=== PATIENT | female | born 1975 | race Asian ===

== ENCOUNTER 2019-05-31 15:30 | Emergency (ER) | payer MEDICAID ==
[~2019-05-31] VITALS: Ht 157.5 cm; Wt 50.8 kg
[2019-05-31 15:41] VITALS: BP_SYST 151
--- NOTE | 2019-05-31 16:00 | NUR ---
Patient to ER bed 03 to gown for evaluation. Side rails up.
--- NOTE | 2019-05-31 16:45 | NUR ---
Patient presented to ER c/o headache and phothophobia for 6 months. Patient A&Ox4, afebrile, ambulatory to ER, Patient states headache pain 10/10 with blurred vision. Patient sytates headache started 6 months ago but pain increased today prompting ER visit. Patient states she has been hospitalized for headache in the past.
--- NOTE | 2019-05-31 17:00 | NUR ---
Mauricio REYES [employer] SPECIALIST at bedside examining patient.
[2019-05-31 17:21] LABS: BASOPHILS # (AUTO) 0.1 K/uL (0.0-0.2); BASOPHILS % (AUTO) 0.9 % (0.0-2.0); EOSINOPHILS # (AUTO) 0.3 K/uL (0.0-0.4); EOSINOPHILS % (AUTO) 3.5 % (0.0-4.0); HEMATOCRIT 41.9 % (36-48); HEMOGLOBIN 13.8 g/dL (12.0-16.0); LYMPHOCYTES # (AUTO) 1.5 K/uL (1.0-5.5); LYMPHOCYTES % (AUTO) 19.6 % (20.5-51.5); MEAN CORPUSCULAR HEMOGLOBIN 30 pg (27-31); MEAN CORPUSCULAR HGB CONC 33 % (32-36); MEAN CORPUSCULAR VOLUME 91 fL (79.0-98.0); MONOCYTES # (AUTO) 0.4 K/uL (0.0-1.0); MONOCYTES % (AUTO) 5.7 % (1.7-9.3); NEUTROPHILS # (AUTO) 5.2 K/uL (1.8-7.7); NEUTROPHILS % (AUTO) 70.3 % (40.0-70.0); PLATELET COUNT (AUTO) 250 K/uL (130-430); RED BLOOD CELL COUNT(AUTO) 4.61 MIL/uL (4.2-6.2); RED CELL DISTRIBUTION WIDTH 13.4 % (9.0-15.0); WHITE BLOOD COUNT (AUTO) 7.4 K/uL (4.8-10.8)
[2019-05-31 17:33] LABS: CALCIUM 9.3 mg/dL (8.4-11.0); CREATININE 0.67 mg/dL (0.55-1.30); POTASSIUM 3.7 mmol/L (3.5-5.1)
[2019-05-31 17:39] LABS: TOTAL BILIRUBIN 0.3 mg/dL (0.0-1.0)
[2019-05-31] MEDS ORDERED: chlorproMAZINE HCL 50 MG/ 2 ML AMP IM ONE (17:45)
[2019-05-31] MEDS ORDERED: DIPHENHYDRAMINE INJ 50 MG/ML VIAL IVP ONE ×2 (17:45)
[2019-05-31] MEDS ORDERED: NACL 0.9% 1,000 ML IV ONE (17:45)
[2019-05-31 17:55] LABS: BILIRUBIN,URINE NEGATIVE (NEGATIVE); BLOOD, URINE 2+ (NEGATIVE); CLARITY/URINE CLEAR (CLEAR); COLOR,URINE YELLOW (YELLOW); GLUCOSE,URINE NEGATIVE (NEGATIVE); KETONES,URINE NEGATIVE (NEGATIVE); LEUKOCYTE ESTERASE ,URINE NEGATIVE (NEGATIVE); NITRITE, URINE NEGATIVE (NEGATIVE); PH,URINE 6.5 (5.0-8.0); PROTEIN URINE NEGATIVE (NEGATIVE); UROBILINOGEN,URINE 0.2 (0.2-1.0)
--- NOTE | 2019-05-31 17:55 | NUR ---
Patient to CT with Radiology staff, Mandeep santos.
--- NOTE | 2019-05-31 18:05 | NUR ---
Patient to ER bed [address]
[2019-05-31 18:07] LABS: BACTERIA,URINE FEW /HPF (None Seen); MUCUS,URINE None Seen /LPF (None Seen); WBC,URINE 0-3 /HPF (0-3)
[2019-05-31] MEDS ORDERED: KETOROLAC TROMETHAMINE 30 MG VIAL IVP ONE (19:30)
--- NOTE | 2019-05-31 19:37 | NUR ---
Patient given written and verbal discharge instructions and verbalizes understanding. ER MD discussed with patient the results and treatment provided. Patient in stable condition. ID arm band removed. IV catheter removed intact and dressing applied, no active bleeding. Rx of excedrin cap given. Patient educated on pain management and to follow up with PMD. Pain /. Opportunity for questions provided and answered. Medication side effect fact sheet provided.
[2019-05-31 19:39] VITALS: BP_SYST 145
== END 2019-05-31 19:39 | disposition home or self-care (01) ==
LOC: SED 15:30
DX: G44.209 Tension-type headache, unspecified, not intractable (principal); R03.0 Elevated blood-pressure reading, without diagnosis of hypertension
CPT/HCPCS: 36415; 70450; 80053; 81000; 84484; 85025; 93005; 96361; 96374; 96375; 99284; J1200; J3230; J7030

== ENCOUNTER 2019-07-10 16:18 | Emergency (ER) | payer MEDICAID ==
[~2019-07-10] VITALS: Ht 157.5 cm; Wt 51.3 kg
[2019-07-10 16:28] VITALS: BP_SYST 137
[2019-07-10] MEDS ORDERED: METOCLOPRAMIDE HCL 10 MG/2 ML VIAL IVP ONE ×2 (17:30→18:00)
[2019-07-10] MEDS ORDERED: MECLIZINE HCL 25 MG TABLET (ANITVERT) PO ONE (17:30)
[2019-07-10 17:58] LABS: BASOPHILS # (AUTO) 0.1 K/uL (0.0-0.2); BASOPHILS % (AUTO) 1.5 % (0.0-2.0); EOSINOPHILS # (AUTO) 0.3 K/uL (0.0-0.4); EOSINOPHILS % (AUTO) 4.3 % (0.0-4.0); HEMATOCRIT 40.1 % (36-48); HEMOGLOBIN 13.4 g/dL (12.0-16.0); LYMPHOCYTES % (AUTO) 32.1 % (20.5-51.5); MEAN CORPUSCULAR HEMOGLOBIN 30 pg (27-31); MEAN CORPUSCULAR HGB CONC 33 % (32-36); MEAN CORPUSCULAR VOLUME 91 fL (79.0-98.0); MONOCYTES # (AUTO) 0.4 K/uL (0.0-1.0); MONOCYTES % (AUTO) 5.6 % (1.7-9.3); NEUTROPHILS # (AUTO) 3.5 K/uL (1.8-7.7); NEUTROPHILS % (AUTO) 56.5 % (40.0-70.0); PLATELET COUNT (AUTO) 264 K/uL (130-430); RED BLOOD CELL COUNT(AUTO) 4.43 MIL/uL (4.2-6.2); RED CELL DISTRIBUTION WIDTH 13.5 % (9.0-15.0); WHITE BLOOD COUNT (AUTO) 6.2 K/uL (4.8-10.8)
[2019-07-10 18:16] LABS: CALCIUM 9.1 mg/dL (8.4-11.0); CREATININE 0.82 mg/dL (0.55-1.30); POTASSIUM 3.7 mmol/L (3.5-5.1)
[2019-07-10 18:30] LABS: ALBUMIN 3.9 g/dL (3.4-4.8); TOTAL BILIRUBIN 0.4 mg/dL (0.0-1.0)
[2019-07-10 18:32] LABS: PROTHROMBIN TIME 9.9 SECS (9.5-12.5)
[2019-07-10 19:41] VITALS: BP_SYST 137
== END 2019-07-10 19:41 | disposition home or self-care (01) ==
LOC: SED 16:18
DX: R42 Dizziness and giddiness (principal); R51 Headache; H93.8X3 Other specified disorders of ear, bilateral
CPT/HCPCS: 36415; 71045; 80053; 81025; 84484; 85025; 85610; 85730; 93005; 96374; 99284; J2765; J8597

== ENCOUNTER 2023-09-16 10:01 | Emergency (ER) | payer BC, MEDICAID ==
[~2023-09-16] VITALS: Ht 157.5 cm; Wt 54.4 kg
[2023-09-16 10:02] VITALS: BP_SYST 161; PULSE 83; RESP 18; TEMP 97.8; O2SAT 99
[2023-09-16] MEDS ORDERED: ASPIRIN 81 MG TAB.CHEW PO ONE (10:15)
[2023-09-16 11:07] LABS: BASOPHILS # (AUTO) 0.1 K/uL (0.0-0.2); BASOPHILS % (AUTO) 0.8 % (0.0-2.0); EOSINOPHILS # (AUTO) 0.3 K/uL (0.0-0.4); EOSINOPHILS % (AUTO) 3.3 % (0.0-4.0); HEMOGLOBIN 11.4 g/dL (12.0-16.0); LYMPHOCYTES # (AUTO) 1.6 K/uL (1.0-5.5); LYMPHOCYTES % (AUTO) 19.9 % (20.5-51.5); MEAN CORPUSCULAR HEMOGLOBIN 26 pg (27-31); MEAN CORPUSCULAR HGB CONC 32 % (32-36); MEAN CORPUSCULAR VOLUME 83 fL (79.0-98.0); MONOCYTES # (AUTO) 0.5 K/uL (0.0-1.0); MONOCYTES % (AUTO) 6.2 % (1.7-9.3); NEUTROPHILS # (AUTO) 5.5 K/uL (1.8-7.7); NEUTROPHILS % (AUTO) 69.8 % (40.0-70.0); PLATELET COUNT (AUTO) 261 K/uL (130-430); RED BLOOD CELL COUNT(AUTO) 4.36 MIL/uL (4.2-6.2); RED CELL DISTRIBUTION WIDTH 14.7 % (9.0-15.0); WHITE BLOOD COUNT (AUTO) 7.9 K/uL (4.8-10.8)
[2023-09-16 11:20] LABS: ANION GAP 12 (5-15); CALCIUM 8.2 mg/dL (8.4-11.0); CARBON DIOXIDE 23 mmol/L (23-29); CHLORIDE 102 mmol/L (98-107); CREATININE 0.81 mg/dL (0.55-1.30); GFR AFRICAN AMERICAN 97 mL/min (>90); GLUCOSE 90 mg/dL (74-106); POTASSIUM 3.3 mmol/L (3.5-5.1); SODIUM SERUM 137 mmol/L (136-145); UREA NITROGEN, BLOOD 10 mg/dL (8-21)
[2023-09-16 11:21] LABS: GFR NON AFRICAN-AMERICAN 80 mL/min (>90)
[2023-09-16] MEDS ORDERED: CARV6.2554 PO (12:56)
[2023-09-16 13:19] VITALS: BP_SYST 161; PULSE 92; RESP 18; TEMP 98.1; O2SAT 100
== END 2023-09-16 13:18 | disposition home or self-care (01) ==
LOC: SED 10:01
DX: R07.9 Chest pain, unspecified (principal); I10 Essential (primary) hypertension; Z79.899 Other long term (current) drug therapy
CPT/HCPCS: 36415; 80048; 84484; 85025; 85379; 93005; 99284

== ENCOUNTER 2024-01-04 21:10 | Emergency (ER) | payer BC ==
[~2024-01-04] VITALS: Ht 157.5 cm; Wt 54.4 kg
[~2024-01-04 21:10] MED LIST: CARV6.2554 PO
[2024-01-04 21:43] VITALS: BP_SYST 146; PULSE 83; RESP 20; TEMP 98.6; O2SAT 100
[2024-01-04] MEDS: MORPHINE 4 MG INJ. 4 MG/ML VIAL IM ONE (22:38)
[2024-01-04] MEDS: KETOROLAC TROMETHAMINE 60 MG/2 ML VIAL IM ONE (22:39)
[2024-01-05] MEDS: MORPHINE 4 MG INJ. 4 MG/ML VIAL IVP ONE (02:17)
[2024-01-05] MEDS ORDERED: TRAM50TA2 PO (03:32)
[2024-01-05] MEDS ORDERED: NAPR-1172 PO (03:32)
[2024-01-05 03:39] VITALS: BP_SYST 146; PULSE 76; RESP 16; TEMP 98.6; O2SAT 100
== END 2024-01-05 03:40 | disposition home or self-care (01) ==
LOC: SED 21:10
DX: S33.9XXA Sprain of unspecified parts of lumbar spine and pelvis, initial encounter (principal); I10 Essential (primary) hypertension; Z88.1 Allergy status to other antibiotic agents; Z79.899 Other long term (current) drug therapy; X50.0XXA Overexertion from strenuous movement or load, initial encounter; Y93.89 Activity, other specified; Y92.89 Other specified places as the place of occurrence of the external cause; Y99.8 Other external cause status
CPT/HCPCS: 99285; 72131; 96372; 96374; J1885; J2270 ×2

== ENCOUNTER 2024-01-10 10:59 | Emergency (ER) | payer BC ==
[~2024-01-10] VITALS: Ht 157.5 cm; Wt 54.4 kg
[~2024-01-10 10:59] MED LIST changes: +NAPR-1172 PO; +TRAM50TA2 PO
[2024-01-10 11:26] VITALS: BP_SYST 131; PULSE 112; RESP 16; TEMP 97.5; O2SAT 100
[2024-01-10 12:30] VITALS: BP_SYST 131; PULSE 112; RESP 16; TEMP 97.5; O2SAT 100
[2024-01-10 14:30] LABS: BILIRUBIN,URINE NEGATIVE (NEGATIVE); BLOOD, URINE 2+ (NEGATIVE); CLARITY/URINE CLEAR (CLEAR); COLOR,URINE YELLOW (YELLOW); GLUCOSE,URINE NEGATIVE (NEGATIVE); KETONES,URINE NEGATIVE (NEGATIVE); LEUKOCYTE ESTERASE ,URINE NEGATIVE (NEGATIVE); NITRITE, URINE NEGATIVE (NEGATIVE); PROTEIN URINE NEGATIVE (NEGATIVE); UROBILINOGEN,URINE 0.2 (0.2-1.0)
[2024-01-10] MEDS ORDERED: MORPHINE 4 MG INJ. 4 MG/ML VIAL ONE (14:37)
[2024-01-10] MEDS ORDERED: ONDANSETRON HCL 4 MG/2 ML VIAL ONE (14:38)
[2024-01-10] MEDS ORDERED: methylPREDNISolone SOD SUCC/PF 62.5 MG/ML VIAL ONE (14:38)
[2024-01-10] MEDS: ONDANSETRON HCL 4 MG/2 ML VIAL IVP ONE (14:46)
[2024-01-10] MEDS ORDERED: HYDR-3917 PO (14:47)
[2024-01-10] MEDS: MORPHINE 4 MG INJ. 4 MG/ML VIAL IVP ONE (14:48)
[2024-01-10] MEDS ORDERED: PRED20TA PO (14:49)
[2024-01-10] MEDS: METHYLPREDNISOLONE SOD SUCC 40 MG/ML VIAL IVP ONE (14:50)
[2024-01-10 14:59] LABS: BACTERIA,URINE FEW /HPF (None Seen); WBC,URINE 0-3 /HPF (0-3)
== END 2024-01-10 15:31 | disposition home or self-care (01) ==
LOC: SED 10:59
DX: M54.30 Sciatica, unspecified side (principal); M51.26 Other intervertebral disc displacement, lumbar region; I10 Essential (primary) hypertension; Z88.1 Allergy status to other antibiotic agents
CPT/HCPCS: 99285; 72148; 96374; 96375; 81000; 81001; 72195; 81025; 81015; J2405; J2270; J2930